=== PATIENT | female | born 1985 ===

== ENCOUNTER 2018-03-13 16:40 | Emergency (ER) | payer OTHER ==
[2018-03-13 16:48] VITALS: BMI 36.2
[2018-03-13 16:50] VITALS: TEMP 98.4
[2018-03-13] MEDS ORDERED: Naproxen 550 mg Tab PO STA (17:18)
[2018-03-13] MEDS ORDERED: Naproxen 550 mg Tab PO ONE (17:25)
--- NOTE | 2018-03-13 17:34 | C.PDOC ---
History Of Present Illness 32 year old female with PMHx of asthma presents to the ED c/o left knee pain for the past 2 months. Patient states last night she started developing in her right knee as well. 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 Patient has been taking Motrin for pain with minimal relief. Patient denies fever, chills, trauma, injury, fall, weakness, numbness. Time Seen by Provider: 03/13/18 17:02 Chief Complaint (Nursing): Lower Extremity Problem/Injury History Per: Patient History/Exam Limitations: no limitations Onset/Duration Of Symptoms: Days Current Symptoms Are (Timing): Still Present Recent travel outside of the [place]: No Additional History Per: Patient - Knee Description Of Injury: Other Currently Unable To: Bend Or Move Alleviating Factor(s): OTC Pain Medication Past Medical History Reviewed: Historical Data, Nursing Documentation, Vital Signs Vital Signs: Last Vital Signs Temp 98.4 F 03/13/18 16:48 Pulse 84 03/13/18 19:27 Resp 16 03/13/18 19:27 BP 129/84 03/13/18 19:27 Pulse Ox 98 03/13/18 19:27 - Medical History PMH: Asthma Surgical History: No Surg Hx Family History: States: Unknown Family Hx - Social History Hx Alcohol Use: Yes Hx Substance Use: No - Immunization History Hx Tetanus Toxoid Vaccination: No Hx Influenza Vaccination: No Hx Pneumococcal Vaccination: No Review Of Systems Constitutional: Negative for: Fever, Chills Cardiovascular: Negative for: Chest Pain, Palpitations Respiratory: Negative for: Cough, Shortness of Breath Gastrointestinal: Negative for: Nausea, Vomiting, Abdominal Pain Musculoskeletal: Positive for: Leg Pain Skin: Negative for: Rash Neurological: Negative for: Weakness, Numbness Physical Exam - Physical Exam Appears: Non-toxic, No Acute Distress Skin: Normal Color, Warm, Dry Head: Atraumatic, Normacephalic Eye(s): bilateral: Normal Inspection Neck: Normal ROM, Supple Chest: Symmetrical Cardiovascular: Rhythm Regular Respiratory: Normal Breath Sounds, No Rales, No Rhonchi, No Wheezing Extremity: Normal ROM, Tenderness (scant bilateral anterior knee), Capillary Refill (< 2 seconds), No Swelling Pulses: Left Dorsalis Pedis: Normal, Right Dorsalis Pedis: Normal Neurological/Psych: Oriented x3, Normal Speech, Normal Motor, Normal Sensation Gait: Steady ED Course And Treatment O2 Sat by Pulse Oximetry: 100 (ON RA) Pulse Ox Interpretation: Normal Medical Decision Making Medical Decision Making: Plan: * B/L knee X-Ray * Naproxen 550 mg PO Xrays are negative for fracture or dislocation. Patient states she has a knee brace already and is ambulatory in the ED with steady gait. Disposition - Disposition Referrals: Elmer Cheng III, MD [Staff Provider] - Chico Hernandez MD [Staff Provider] - Disposition: HOME/ ROUTINE Disposition Time: 19:16 Condition: GOOD Additional Instructions: Follow up with the medical doctor within 1-2 days. Return if worsened. Prescriptions: Naproxen [Naprosyn] 500 mg PO BID #20 tab Instructions: Knee Pain Forms: [facility] (Bahamian), Work Excuse - Clinical Impression Clinical Impression: Knee pain - PA / EXTRA HAND / Resident Statement MD/DO has reviewed & agrees with the documentation as recorded. - Scribe Statement The provider has reviewed the documentation as recorded by the Scribe Ivan Pringle All medical record entries made by the Scribe were at my direction and personally dictated by me. I have reviewed the chart and agree that the record accurately reflects my personal performance of the history, physical exam, medical decision making, and the department course for this patient. I have also personally directed, reviewed, and agree with the discharge instructions and disposition.
[2018-03-13 19:28] VITALS: BP 129/84; PULSE 84; RESP 16
[2018-03-13 22:32] VITALS: O2SAT 100
--- NOTE | 2018-03-14 08:39 | RAD ---
Date of service: 03/13/2018 PROCEDURE: Bilateral Knee Radiographs. HISTORY: knee pain bilateral COMPARISON: None. FINDINGS: BONES: Right Knee: Normal. No fracture. Left Knee: Normal. No fracture. JOINTS: Right Knee: Normal. No osteoarthritis. Left knee: Normal. No osteoarthritis. SOFT TISSUES: Right Knee: Normal. Left Knee: Normal. JOINT EFFUSION: Right Knee: None. Left Knee: None. OTHER FINDINGS: None. IMPRESSION: Normal radiographs of the knees.
== END 2018-03-13 19:27 | disposition home or self-care (01) ==
LOC: C.ER 16:40
DX: M25.562 Pain in left knee (principal); M25.561 Pain in right knee